=== PATIENT | male | born 1995 | race Caucasian/White ===

== ENCOUNTER 2023-09-14 00:08 | Emergency (ER) | payer BC ==
[~2023-09-14] VITALS: Ht 185.4 cm; Wt 98.9 kg
[2023-09-14] MEDS ORDERED: Ibuprofen 600 MG Tab PO ONE (00:25)
[2023-09-14] MEDS ORDERED: Amoxicillin/Clavulanate K 875 MG Tab PO ONE (00:25)
[2023-09-14 00:26] VITALS: BP 152/96
[2023-09-14] MEDS ORDERED: IBU600 MG PO (00:26)
[2023-09-14] MEDS ORDERED: AMOCLA875 PO ×2 (00:26→10:12)
[2023-09-14] MEDS ORDERED: IBU600 M1 PO (10:12)
== END 2023-09-14 00:36 | disposition home or self-care (01) ==
LOC: ER 00:08
DX: H66.93 Otitis media, unspecified, bilateral (principal)
CPT/HCPCS: 99282; A9270